=== PATIENT | male | born 1955 | race Caucasian/White ===

== ENCOUNTER 2018-09-24 18:33 | Emergency (ER) | payer BC ==
[~2018-09-24] VITALS: Ht 175.3 cm; Wt 90.0 kg
[2018-09-24 18:37] VITALS: BP 134/81; PULSE 75; RESP 18; Ht 175.3 cm; Wt 90.0 kg
--- NOTE | 2018-09-24 19:39 | ERD ---
ER Documentation Chief Complaint Chief Complaint hemorrhoids HPI The patient is a 63-year-old male, presenting to the ER because of chronic hemorrhoids, complains of rectal pain for the last week, denies bleeding, denies syncope, near syncope, neck pain, chest pain, dyspnea, abdominal pain, vomiting, complains of constipation. He smokes a pack a day Past medical history: Hypertension, dyslipidemia, CAD, hemorrhoids Past surgical history: Stent PCI ROS All systems reviewed and are negative except as per history of present illness. Medications Home Meds Active Scripts Polyethylene Glycol* (Miralax*) 17 Gm Powd.pack, 17 GM PO DAILY, #7 Prov:PONCE SRINIVASAN MD 09/24/18 Hydrocortisone Acetate (Anusol-Hc) 25 Mg Supp.rect, 1 SUPP GA BID PRN for HE MORROID PAIN/ITCHING, #12 SUPP.RECT Prov:PONCE SRINIVASAN MD 09/24/18 Allergies Allergies: Coded Allergies: No Known Allergy (Unverified , 09/24/18) PMhx/Soc History of Surgery: Yes Anesthesia Reaction: No Hx Neurological Disorder: No Hx Respiratory Disorders: No Hx Cardiac Disorders: Yes (HTN, Hyperlipidemia, stents) Hx Alcohol Use: No Hx Substance Use: No Hx Tobacco Use: Yes (1pack/day) Smoking Status: Heavy tobacco smoker Physical Exam Vitals Vital Signs Date Temp Pulse Resp B/P (MAP) Pulse Ox O2 O2 Flow FiO2 Time Delivery Rate 09/24/18 98.0 75 18 134/81 96 18:37 (98) Physical Exam Const: No acute distress. Head: Atraumatic. Eyes: Normal Conjunctiva. ENT: Normal External Ears, Nose and Mouth. Neck: Full range of motion. No meningismus. Resp: Clear to auscultation bilaterally. Cardio: Regular rate and rhythm. Abd: Soft, non distended, normal bowel sounds, non tender. Skin: No petechiae or rashes. Back: No midline or flank tenderness. Ext: No cyanosis, or edema. Neur: Awake and alert. No focal deficit Psych: Normal Mood and Affect. Rectal: External hemorrhoids, no bleeding Procedures/MDM MEDICAL MAKING DECISION: The patient is a 62-year-old male, presenting with chronic external hemorrhoid, is stable for outpatient follow-up The differential diagnoses considered include but are not limited to thrombosed hemorrhoid, lower gastrointestinal bleeding, rectal fissure Departure Diagnosis: Primary Impression: Hemorrhoids Additional Impression: Constipation Condition: Good Comments He was discharged with Anusol HC suppository and MiraLAX I discussed the findings with the patient. I advised the patient to follow-up with the primary physician in about 1-2 days, sooner if needed and return if any concern. Disclaimer: Inadvertent spelling and grammatical errors are likely due to EHR/dictation software use and do not reflect on the overall quality of patient care. Also, please note that the electronic time recorded on this note does not necessarily reflect the actual time of the patient encounter. PONCE SRINIVASAN MD Sep 24, 2018 19:39
[2018-09-24] MEDS ORDERED: HYDR25SU23 PR (19:58)
[2018-09-24] MEDS ORDERED: POLY17PO6 PO (19:58)
== END 2018-09-24 20:05 | disposition home or self-care (01) ==
LOC: FTE 18:33
DX: K64.9 Unspecified hemorrhoids (principal); K59.00 Constipation, unspecified; I10 Essential (primary) hypertension; I25.10 Atherosclerotic heart disease of native coronary artery without angina pectoris; F17.210 Nicotine dependence, cigarettes, uncomplicated; Z98.61 Coronary angioplasty status
CPT/HCPCS: 99282